=== PATIENT | female | born 1980 | race Caucasian/White ===

== ENCOUNTER 2020-08-06 08:06 | Day surgery (SDC) | payer BC ==
[2020-08-05 17:14] VITALS: BMI 39.4
[2020-08-06] MEDS ORDERED: PROPOFOL 20 ML ONE ×2 (08:30)
[2020-08-06] MEDS ORDERED: LIDOCAINE HCL/PF 2% SDV 5ML VIAL ONE (08:30)
[2020-08-06 08:32] VITALS: TEMP 97.8
[2020-08-06 09:23] VITALS: BP 123/85; PULSE 76
== END 2020-08-06 10:35 | disposition home or self-care (01) ==
LOC: FASU-ENDO 08:06
PROVIDERS: ATTEND Internal Medicine Gastroenterology
PROC: 0DB68ZX Excision of Stomach, Via Natural or Artificial Opening Endoscopic, Diagnostic (ICD-10-PCS; 2020-08-06)
PROC: 0DB98ZX Excision of Duodenum, Via Natural or Artificial Opening Endoscopic, Diagnostic (ICD-10-PCS; principal; 2020-08-06 09:00)
DX: K29.50 Unspecified chronic gastritis without bleeding (principal); R12 Heartburn
CPT/HCPCS: 84703; 88305-TC; 88342-TC